=== PATIENT | female | born 2000 | race Two or more races ===

== ENCOUNTER 2022-05-15 22:08 | Emergency (ER) | payer OTHER, SELFPAY ==
[2022-05-15 22:22] VITALS: BP 105/66; PULSE 79; RESP 16; TEMP 36.6; O2SAT 99; BMI 24.6
[2022-05-15 23:02] LABS: MANUAL DIFF FLAG NO
[2022-05-15 23:03] LABS: Basophils Percent Auto 0.6 % (0-2); Eosinophils Absolute Auto 0.1 X10*3/uL (0.0-0.4); Eosinophils Percent Auto 1.7 % (0-4); Hematocrit 39.9 % (37.0-47.0); Hemoglobin 12.8 g/dl (12.0-16.0); Imm Gran Abs Auto 0.02 X10*3/uL (0.00-0.03); Imm Gran Pct Auto 0.3 % (0.0-0.4); Lymphocytes Absolute Auto 2.3 X10*3/uL (1.2-4.9); Lymphocytes Percent Auto 32.1 % (20-40); Mean Corpuscular HGB Conc 32.1 g/dl (31.0-35.0); Mean Corpuscular Hemoglobin 25.3 pg (27.0-33.0); Mean Corpuscular Volume 78.9 fL (80.0-98.0); Mean Platelet Volume 9.8 fL (9.4-12.3); Monocytes Absolute Auto 0.6 X10*3/uL (0.1-1.2); Monocytes Percent Auto 7.9 % (2-11); Neutrophils Absolute Auto 4.1 x10*3/uL (2.0-8.3); Neutrophils Percent Auto 57.4 % (45-73); Platelet Count 305 X10*3/uL (160-400); Red Blood Count 5.06 X10*6/uL (4.20-5.50); Red Cell Distribution Width 12.7 % (11.0-16.0); White Blood Count 7.1 X10*3/uL (4.8-10.8)
[2022-05-15 23:22] LABS: Anion Gap 13 (12-20); Blood Urea Nitrogen 13 mg/dL (9-16); Calcium 9.5 mg/dL (8.4-10.2); Carbon Dioxide 27 mmol/L (22-29); Chloride 104 mmol/L (96-108); Creatinine Clr Calc Pharmacy 106.3; Estimated Glomerular Filt Rate > 60; Glucose Random 85 mg/dL (60-115); Potassium 4.1 mmol/L (3.3-5.1); Sodium 140 mmol/L (135-145)
== END 2022-05-16 02:30 | disposition left against medical advice (07) ==
PROVIDERS: Emergency Provider Emergency Medicine
DX: M54.2 Cervicalgia (principal); Z79.899 Other long term (current) drug therapy
CPT/HCPCS: 36415; 80048; 85025; 99281; 99282

== ENCOUNTER 2025-05-24 21:33 | Emergency (ER) | payer OTHER, SELFPAY ==
[2025-05-24 21:36] VITALS: BP 136/55; PULSE 84; RESP 20; TEMP 36.1; O2SAT 97; BMI 28.3
[2025-05-24 21:53] LABS: MANUAL DIFF FLAG NO
[2025-05-24 21:56] LABS: Hematocrit 36.7 % (37.0-47.0); Hemoglobin 11.7 g/dl (12.0-16.0); Imm Gran Abs Auto 0.03 X10*3/uL (0.00-0.03); Imm Gran Pct Auto 0.4 % (0.0-0.4); Lymphocytes Absolute Auto 1.3 X10*3/uL (1.2-4.9); Mean Corpuscular HGB Conc 31.9 g/dl (31.0-35.0); Mean Corpuscular Hemoglobin 25.2 pg (27.0-33.0); Mean Corpuscular Volume 79.1 fL (80.0-98.0); NRBC Abs Auto 0.000 X10*3/uL (0.0-0.012); NRBC Pct Auto 0.0 /100WBC (0.0-0.2); Platelet Count 314 X10*3/uL (160-400); Red Blood Count 4.64 X10*6/uL (4.20-5.50); White Blood Count 7.5 X10*3/uL (4.8-10.8)
--- OUTSIDE RECORDS SUMMARY | 2025-05-24 21:57 | XMS_ITS | Clinical Summary ---
Author Organization [facility] [place] Address [address] [place] [address] Care Team Providers Care Freight Receiver Name Role Phone Unavailable Primary Care Provider Unavailabl e Social History Tobacco Use Types Packs/Day Years Used Date Smoking Tobacco: Never Assessed Comments Unknown Sex and Gender Information Value Date Recorded Sex Assigned at Not on file Legal Sex Female 3:14 PM EST Gender Identity Not on file Sexual Orientation Not on file Plan of Treatment Health Maintenance Due Date Last Done Comments HPV Vaccines (1 - 3-dose series) 2013 DTaP,Tdap,and Td Vaccines (1 - Tdap) 2017 Hepatitis B Vaccines (1 of 3 - 19+ 3-dose series) 2017 Cervical Cancer Screening: P ap Smear 2019 Depression Screening 08/29/2024 COVID-19 Vaccine ( - 2023-2 5 season) 2025 Influenza Vaccine (#1) 2025 HIB Vaccines Aged Out No longer eligi ble based on patient's age to complete this topic Hepatitis A Vaccines Aged Out No long er eligible based on patient's age to complete this topic IPV Vaccines Aged Out No longer eligi ble based on patient's age to complete this topic MMR Vaccines Aged Out No longer eligi ble based on patient's age to complete this topic Meningococcal ACWY Vaccine Aged Out N o longer eligible based on patient's age to complete this topic Meningococcal B Vaccine Aged Out No l onger eligible based on patient's age to complete this topic Pneumococcal Vaccine: Pediat rics (0 to 5 Years) and At-Risk Patients (6 to 49 Years) Aged Out No longer eligible b ased on patient's age to complete this topic RSV Immunization Patients Un bryan 20 months Aged Out No longer eligible b ased on patient's age to complete this topic Varicella Vaccines Aged Out No longer eligible based on patient's age to complete this topic
[2025-05-24 22:08] LABS: Alanine Aminotransferase 42 U/L (0-31); Albumin Level 4.4 g/dL (3.5-5.0); Alkaline Phosphatase 113 U/L (39-117); Anion Gap 11 (12-20); Aspartate Amino Transferase 34 U/L (5-31); Blood Urea Nitrogen 13 mg/dL (9-16); Calcium 8.7 mg/dL (8.4-10.2); Carbon Dioxide 27 mmol/L (22-29); Chloride 107 mmol/L (96-108); Creatinine Clr Calc Pharmacy 116.7; Estimated Glomerular Filt Rate > 60; Potassium 3.7 mmol/L (3.3-5.1); Sodium 141 mmol/L (135-145); Total Protein 7.3 g/dL (6.5-8.0)
--- NOTE | 2025-05-24 22:53 | ED.HA ---
HPI - Headache General Chief Complaint: Headache Stated Complaint: Migraine/Vomiting Time Seen by Provider: 05/24/25 22:25 History of Present Illness HPI Narrative: Patient is a 24-year-old female with a history of migraine headaches in the past. Presents today with having headache since about 16:00. The headaches on the right side associated with nausea. No focal weakness. No gross change in vision but headache seems to be worse with loud noise and with light. Patient from home. No focal weakness. No fever no chills. Related Data Allergies Allergy/AdvReac Type Severity Reaction Status Date / Time No Known Allergies Allergy Verified 05/24/25 21:38 Review of Systems Review of Systems: Positive headache Yes all other systems are reviewed and are negative [facility] Past Medical History Attestation statement: The following information was validated with the patient. Social History Social History Smoked in Last 30 Days: No Use of substances other than those prescribed or required for medical reasons: No Advance Directives: No Advance Directives Information Provided: No Patient : No Physical Exam Exam: Exam: Appearance: Alert. Oriented X3. No acute distress. Eyes: Pupils equal, round and reactive to light. ENT: Pharynx normal. Neck: Normal inspection. Neck supple. No lymph nodes noted. No crepitus CVS: Normal heart rate and rhythm. Pulses normal. Normal S1 and S2 Respiratory: No respiratory distress. Breath sounds normal. No Wheezing. No rales Abdomen: Soft and nontender. No rigidity. No distention. good BS x4 Skin: Skin warm and dry. Normal skin color. Normal skin turgor. Extremities: No lower extremity edema. Neurovascular intact to all extremities. No Lacerations. No Rash Neuro: Oriented X 3. No motor deficit. No sensory deficit. Moving all extermities. No slurred speech Vital Signs: Vital Signs: Last Vital Signs Temp 97 F 05/24/25 21:36 Pulse 84 05/24/25 21:36 Resp 20 05/24/25 21:36 BP 136/55 L 05/24/25 21:36 Pulse Ox 97 05/24/25 21:36 O2 Del Method Room Air 05/24/25 21:36 BMI result Body Mass Index 28.3 Medications Administered Discontinued Medications Generic Name Dose Route Start Last Admin Trade Name Freq PRN Reason Stop Dose Admin Diphenhydramine HCl 25 mg 05/24/25 22:51 05/24/25 23:07 Diphenhydramine Hcl 50 Mg/Ml Vial IVPUSH 05/24/25 22:52 25 mg ONCE ONE Administration Sodium Chloride 1,000 mls @ 999 mls/hr 05/24/25 23:00 05/25/25 00:37 Ns IV 05/25/25 00:00 Infused .Q1H1M MINGO Infusion Sodium Chloride 1,000 mls @ 999 mls/hr 05/24/25 23:00 05/25/25 00:37 Ns IV 05/25/25 00:00 Infused .Q1H1M MINGO Infusion Ketorolac Tromethamine 15 mg 05/24/25 22:51 05/24/25 23:07 Ketorolac Tromethamine 15 Mg/Ml Vial IVPUSH 05/24/25 22:52 15 mg ONCE ONE Administration Metoclopramide HCl 10 mg 05/24/25 22:51 05/24/25 23:07 Metoclopramide Hcl 10 Mg/2 Ml Vial IVPUSH 05/24/25 22:52 10 mg ONCE ONE Administration Medical Decision Making Medical Decision Making [facility] Narrative: Patient well-appearing neurologically intact history consistent with migraine not consistent with bleed or meningitis. Given a migraine cocktail with good relief of symptoms will discharge patient home in stable condition Differential Diagnosis Differential Diagnoses: The differential diagnosis associated with the presentation includes Migraine intracranial bleed meningitis Admission/Observation Consideration of admission/observation: Escalation of care including admission/observation considered Lab Data [facility] Lab Attestation statement: I reviewed the patient's lab results. 05/24/25 21:45 05/24/25 21:45 Labs: Lab Results 05/24/25 05/24/25 Range/Units 21:45 22:59 WBC 7.5 (4.8-10.8) X10*3/uL RBC 4.64 (4.20-5.50) X10*6/uL Hgb 11.7 L (12.0-16.0) g/dl Hct 36.7 L (37.0-47.0) % MCV 79.1 L (80.0-98.0) fL MCH 25.2 L (27.0-33.0) pg MCHC 31.9 (31.0-35.0) g/dl RDW 12.9 (11.0-16.0) % Plt Count 314 (160-400) X10*3/uL MPV 9.5 (9.4-12.3) fL Immature Gran % (Auto) 0.4 (0.0-0.4) % Neut % (Auto) 74.6 H (45-73) % Lymph % (Auto) 17.3 L (20-40) % Marin % (Auto) 5.6 (2-11) % Eos % (Auto) 1.7 (0-4) % Baso % (Auto) 0.4 (0-2) % Lymph # (Auto) 1.3 (1.2-4.9) X10*3/uL Marin # (Auto) 0.4 (0.1-1.2) X10*3/uL Eos # (Auto) 0.1 (0.0-0.4) X10*3/uL Baso # (Auto) 0.0 (0.0-0.2) X10*3/uL Abs Immat Gran (auto) 0.03 (0.00-0.03) X10*3/uL Absolute Neuts (auto) 5.6 (2.0-8.3) x10*3/uL Absolute Nucleated RBC 0.000 (0.0-0.012) X10*3/uL Nucleated RBC % (auto) 0.0 (0.0-0.2) /100WBC Sodium 141 (135-145) mmol/L Potassium 3.7 (3.3-5.1) mmol/L Chloride 107 (96-108) mmol/L Carbon Dioxide 27 (22-29) mmol/L Anion Gap 11 L (12-20) BUN 13 (9-16) mg/dL Creatinine 0.75 (0.5-1.4) mg/dL Estim Creat Clear Calc 116.7 Estimated GFR > 60 Random Glucose 114 (60-115) mg/dL Calcium 8.7 D (8.4-10.2) mg/dL Total Bilirubin 0.2 (0.0-1.0) mg/dL AST 34 H (5-31) U/L ALT 42 H (0-31) U/L Alkaline Phosphatase 113 (39-117) U/L Total Protein 7.3 (6.5-8.0) g/dL Albumin 4.4 (3.5-5.0) g/dL COVID-19 (SABRINA) Negative (Negative) COVID-19 Clin Com See Note Influenza Type A (ANDER) Negative (Negative) Influenza Type B (ANDER) Negative (Negative) Influenza A & B Note See Note Independent Historian Mom Tests considered The following testing was considered but not selected: No need for CT scan of the head Chronic Conditions Migraine headache Social Determinants Patient?s care significantly limited by Social Determinants of Health including: Problems related to primary support group Discharge Plan Discharge Clinical Impression: Migraine Patient Disposition: Home, Self-Care Instructions: Migraine Headache (ED) Referrals: Torie Jaquez MD [Primary Care Provider, Pediatrics] - 05/27/25 Print Language: Pashto
[2025-05-24 23:24] LABS: IDNOW Serial# 55D5AD1C; Influenza B2 Negative (Negative)
[2025-05-24 23:25] LABS: COVID-19 Test Negative (Negative); IDNOW Serial# 58CA691E
[2025-05-25 01:00] VITALS: BP 104/67; PULSE 78; RESP 16; TEMP 36.6; O2SAT 99
[2025-05-25 01:04] VITALS: BP 104/67; PULSE 78; RESP 16; TEMP 36.6; O2SAT 99
== END 2025-05-25 01:04 | disposition home or self-care (01) ==
PROVIDERS: Emergency Provider Emergency Medicine Emergency Medical Services; PCP Pediatrics Adolescent Medicine
DX: G43.909 Migraine, unspecified, not intractable, without status migrainosus (principal)
CPT/HCPCS: 36415; 80053; 85025; 87502; 87635; 96361; 96374; 96375; 99284; J1200; J1885; J2765